=== PATIENT | male | born 2000 | race African-American/Black ===

== ENCOUNTER 2022-02-17 19:01 | Emergency (ER) ==
[~2022-02-17] VITALS: Ht 175.3 cm; Wt 84.1 kg
== END 2022-02-17 20:01 | disposition left against medical advice (07) ==
LOC: M ED 19:01
DX: Z53.21 Procedure and treatment not carried out due to patient leaving prior to being seen by health care provider (principal)

== ENCOUNTER 2022-07-28 06:34 | Emergency (ER) | payer OTHER ==
[~2022-07-28] VITALS: Ht 175.3 cm; Wt 88.0 kg
[2022-07-28 06:35] VITALS: BP 124/58
[2022-07-28] MEDS ORDERED: PSEU120T19 PO (08:23)
== END 2022-07-28 08:30 | disposition home or self-care (01) ==
LOC: M ED 06:34
DX: J02.9 Acute pharyngitis, unspecified (principal); B34.8 Other viral infections of unspecified site

== ENCOUNTER 2022-12-08 17:08 | Emergency (ER) | payer OTHER ==
[~2022-12-08] VITALS: Ht 175.3 cm; Wt 93.2 kg
[~2022-12-08 17:08] MED LIST: PSEU120T19 PO
[2022-12-08 17:16] VITALS: BP 142/63
[2022-12-08] MEDS ORDERED: IBUP200C25 PO (17:36)
== END 2022-12-08 18:16 | disposition left against medical advice (07) ==
LOC: M ED 17:08
DX: Z53.21 Procedure and treatment not carried out due to patient leaving prior to being seen by health care provider (principal)